=== PATIENT | female | born 1955 | race Caucasian/White ===

== ENCOUNTER 2022-04-11 08:02 | Emergency (ER) | payer MEDICARE, MEDICAID ==
[~2022-04-11] VITALS: Ht 160 cm; Wt 59.0 kg
[~2022-04-11 08:02] MED LIST: ALBU8HFA IH; ALEN70TA80 PO; ATOR20TA65 PO; BENZ2TAB76 PO; CHOL10002 PO; FLUT220HFA IH; LEVO112T4 PO; METF500T PO; OMEP20 PO; OS500 PO; PARO30TA60 PO; TOPI100T37 PO; ZIPR80CA2 PO
[2022-04-11] MEDS ORDERED: KETOROLAC TROMETHAMINE 30 MG/ML VIAL IM ONE (09:45)
[2022-04-11 10:37] VITALS: BP 132/83
[2022-04-11] MEDS ORDERED: IBUP-2070 PO (10:56)
== END 2022-04-11 11:10 | disposition home or self-care (01) ==
LOC: EMS 08:03
DX: S40.012A Contusion of left shoulder, initial encounter (principal); E11.9 Type 2 diabetes mellitus without complications; F31.9 Bipolar disorder, unspecified; F41.9 Anxiety disorder, unspecified; F03.90 Unspecified dementia, unspecified severity, without behavioral disturbance, psychotic disturbance, mood disturbance, and anxiety; K21.9 Gastro-esophageal reflux disease without esophagitis; M19.90 Unspecified osteoarthritis, unspecified site; V09.9XXA Pedestrian injured in unspecified transport accident, initial encounter; Y93.89 Activity, other specified; Y92.512 Supermarket, store or market as the place of occurrence of the external cause; Y99.8 Other external cause status; Z90.49 Acquired absence of other specified parts of digestive tract; Z88.1 Allergy status to other antibiotic agents; Z88.0 Allergy status to penicillin
CPT/HCPCS: 99283; 82962; 73030; 96372; J1885

== ENCOUNTER 2022-09-01 13:24 | Emergency (ER) | payer MEDICARE, MEDICAID ==
[~2022-09-01] VITALS: Ht 160 cm; Wt 62.7 kg
[~2022-09-01 13:24] MED LIST changes: -ATOR20TA65 PO; -CHOL10002 PO; +IBUP-1492 PO
[2022-09-01] MEDS ORDERED: DOXE50CA70 PO (13:47)
[2022-09-01] MEDS ORDERED: GLUC1TAB61 PO (13:47)
[2022-09-01] MEDS ORDERED: LINA72CA PO (13:47)
[2022-09-01] MEDS ORDERED: CALC-1009 PO (13:47)
[2022-09-01] MEDS ORDERED: LORazepam 2 MG/ML VIAL IVP ONE (15:15)
[2022-09-01] MEDS ORDERED: CLINDAMYCIN HCL 150 MG CAPSULE PO ONE (15:15)
[2022-09-01] MEDS ORDERED: IBUPROFEN 600 MG TABLET PO ONE (15:15)
[2022-09-01] MEDS ORDERED: DiphenhydrAMINE HCL 50 MG/ML VIAL IVP ONE (15:15)
[2022-09-01] MEDS ORDERED: CLIN300C58 PO (17:23)
[2022-09-01 17:44] VITALS: BP 125/72
== END 2022-09-01 17:46 | disposition home or self-care (01) ==
LOC: EMS 13:26
DX: R68.84 Jaw pain (principal); M19.011 Primary osteoarthritis, right shoulder; F41.9 Anxiety disorder, unspecified; F31.9 Bipolar disorder, unspecified; E11.9 Type 2 diabetes mellitus without complications; F03.90 Unspecified dementia, unspecified severity, without behavioral disturbance, psychotic disturbance, mood disturbance, and anxiety; Z87.891 Personal history of nicotine dependence; Z90.49 Acquired absence of other specified parts of digestive tract; Z98.890 Other specified postprocedural states; Z88.8 Allergy status to other drugs, medicaments and biological substances
CPT/HCPCS: 82962; 99283

== ENCOUNTER 2023-02-27 17:03 | Inpatient (IN) | payer MEDICARE, MEDICAID ==
[~2023-02-27] VITALS: Ht 152.4 cm; Wt 71.1 kg
[~2023-02-27 17:03] MED LIST changes: +ALBU18HF12 IH; -ALBU8HFA IH; +BENZ2TAB71 PO; -BENZ2TAB76 PO; +CALC-1009 PO; +CLIN300C58 PO; +DOXE50CA70 PO; +FLUT12AE18 IH; -FLUT220HFA IH; +GLUC1TAB61 PO; +LINA72CA PO; -PARO30TA60 PO
[2023-02-27] MEDS ORDERED: LINA72CA PO (18:34)
[2023-02-27] MEDS ORDERED: LEVO125T95 PO (18:34)
[2023-02-27] MEDS ORDERED: MAGNESIUM PO (18:34)
[2023-02-27] MEDS ORDERED: FERR220E10 PO (18:34)
[2023-02-27] MEDS ORDERED: MULT-1203 PO (18:34)
[2023-02-27] MEDS ORDERED: BACL10TA PO (18:34)
[2023-02-27] MEDS ORDERED: ALEN70TA80 PO (18:34)
[2023-02-27] MEDS ORDERED: ATOR20TA65 PO (18:34)
[2023-02-27] MEDS ORDERED: BENZ1TAB84 PO (18:34)
[2023-02-27] MEDS ORDERED: GLUCOSAMINE PO (18:34)
[2023-02-27] MEDS ORDERED: MEMA5 PO (18:34)
[2023-02-27] MEDS ORDERED: TOPI200T PO (18:34)
[2023-02-27] MEDS ORDERED: FERR-82 PO (18:34)
[2023-02-27] MEDS ORDERED: ALBU18HF12 IH (18:34)
[2023-02-27] MEDS ORDERED: METF-1211 PO (18:34)
[2023-02-27] MEDS ORDERED: GABA-1181 PO (18:34)
[2023-02-27] MEDS ORDERED: ZIPR60CA29 PO (18:34)
[2023-02-27] MEDS ORDERED: SODIUM CHLORIDE 0.9% 1,000 ML IV ONE (22:30)
[2023-02-27] MEDS ORDERED: ONDANSETRON HCL 4 MG/2 ML VIAL IVP ONE (22:30)
[2023-02-27 22:51] LABS: BASOPHILS % (AUTO) 1.4 % (0.0-2.0); EOSINOPHILS % (AUTO) 0.4 % (1.0-6.0); HEMATOCRIT 40.4 % (36-46); HEMOGLOBIN 12.6 g/dL (12.0-16.0); LYMPHOCYTES % (AUTO) 27.8 % (22.0-44.0); MEAN CORPUSCULAR HEMOGLOBIN 24.7 pg (26.0-34.0); MEAN CORPUSCULAR HGB CONC 31.2 G/dL (31.0-37.0); MEAN CORPUSCULAR VOLUME 79 fL (80-100); MONOCYTES # (AUTO) 0.5 K/uL (0.1-1.0); NEUTROPHILS # (AUTO) 6.9 K/uL (1.8-7.7); NEUTROPHILS % (AUTO) 65.4 % (40.0-70.0); PLATELET COUNT (AUTO) 466 K/uL (150-450); RED CELL DISTRIBUTION WIDTH 16.6 % (11.5-14.5)
[2023-02-27 23:02] LABS: ANION GAP 14 mmol/L (8-16); CALCIUM, TOTAL 9.4 mg/dL (8.8-10.5); CARBON DIOXIDE 24 mmol/L (22-29); CHLORIDE 104 mmol/L (98-107); CREATININE 0.75 mg/dL (0.60-1.30); GLOMERULAR FILTR. RATE CALC > 60 mL/min (>60); GLUCOSE,RANDOM 124 mg/dL (70-110); POTASSIUM 3.6 mmol/L (3.5-5.1); SODIUM SERUM 142 mmol/L (136-145)
[2023-02-27 23:08] LABS: ALANINE AMINOTRANSFERASE 18 U/L (12-78); ALBUMIN 3.3 g/dL (3.4-5.0); ALKALINE PHOSPHATASE 112 U/L (46-116); ASPARTATE AMINOTRANSFERASE 13 U/L (15-37); BILIRUBIN,TOTAL 0.2 mg/dL (0.1-1.0); CREATINE KINASE, TOTAL ONLY 45 U/L (26-192); LIPASE 37 U/L (73-393); TOTAL PROTEIN, SERUM 7.6 g/dL (6.4-8.2)
[2023-02-27 23:17] LABS: B-TYPE NATRIURETIC PEPTIDE 264 pg/mL (0-100)
[2023-02-27] MEDS ORDERED: PANTOPRAZOLE SODIUM 40 MG/VIAL IVP ONE (23:30)
[2023-02-28] MEDS ORDERED: ONDANSETRON HCL 4 MG/2 ML VIAL IVP PRN ×2 (00:15→00:30)
[2023-02-28] MEDS ORDERED: 0.9% SODIUM CHLORIDE 10 ML SYRINGE IVP PRN ×2 (00:15→00:30)
[2023-02-28] MEDS ORDERED: ACETAMINOPHEN 325 MG TABLET PO PRN ×2 (00:15→00:30)
[2023-02-28 01:37] VITALS: BP 126/78; PULSE 80; RESP 20; TEMP 98.1
[2023-02-28 04:37] VITALS: BP 121/66; PULSE 83; RESP 18; TEMP 97.8
[2023-02-28 04:45] LABS: APPEARANCE,URINE TURBID (CLEAR); BILIRUBIN,URINE NEGATIVE (NEGATIVE); GLUCOSE, URINE (UA) NEGATIVE (NEGATIVE); KETONES,URINE 40-60 mg/dL (NEGATIVE); LEUKOCYTE ESTERASE ,URINE NEGATIVE (NEGATIVE); NITRATE,URINE NEGATIVE (NEGATIVE); OCCULT BLOOD,URINE NEGATIVE (NEGATIVE); PROTEIN,URINE 30-70 mg/dL (NEGATIVE); SPECIFIC GRAVITIY, URINE 1.015 (1.003-1.030); UROBILINOGEN,URINE <=1.0 mg/dL (<=1.0)
[2023-02-28] MEDS ORDERED: DEXTROSE 50%-WATER 25 GM/50 ML SYRINGE IVP PRN ×2 (07:45)
[2023-02-28] MEDS ORDERED: INSULIN LISPRO 100 UNITS/ML SQ PRN ×2 (07:45)
[2023-02-28] MEDS ORDERED: SODIUM CHLORIDE 0.9% 1,000 ML IV ONE (07:45)
[2023-02-28 08:00] VITALS: BP 121/75; PULSE 80; RESP 20; TEMP 98
[2023-02-28 08:23] LABS: THYROID STIMULATING HORMONE 0.84 uIU/mL (0.36-3.74)
[2023-02-28] MEDS: DOCUSATE SODIUM 100 MG CAPSULE PO SCH ×2 (09:28→20:42)
[2023-02-28] MEDS: HEPARIN SODIUM,PORCINE 5,000 UNITS/ML VIAL SQ SCH ×3 (09:32→23:35)
[2023-02-28] MEDS: PANTOPRAZOLE SODIUM 40 MG/VIAL IVP SCH (09:33)
[2023-02-28] MEDS ORDERED: METOCLOPRAMIDE HCL 5 MG TABLET PO PRN (10:30)
[2023-02-28] MEDS: ZIPRASIDONE HCL 80 MG CAPSULE PO SCH ×2 (13:14→18:14)
[2023-02-28] MEDS: ACETAMINOPHEN 325 MG TABLET PO PRN ×2 (15:00→20:42)
[2023-02-28] MEDS: ONDANSETRON HCL 4 MG/2 ML VIAL IVP PRN (15:07)
[2023-02-28 15:56] VITALS: BP 115/68; PULSE 73; RESP 20; TEMP 98.1
[2023-02-28] MEDS: DOXEPIN HCL 50 MG CAPSULE PO SCH (16:15)
[2023-02-28 20:01] VITALS: BP 115/70; PULSE 73; RESP 18; TEMP 97.6
[2023-02-28] MEDS ORDERED: MAGN500T4 PO (20:12)
[2023-02-28] MEDS ORDERED: GLUC500 PO (20:12)
[2023-02-28] MEDS ORDERED: OMEP20CA13 PO (20:12)
[2023-02-28] MEDS ORDERED: PARO30TA60 PO (20:12)
[2023-02-28] MEDS ORDERED: ZIPR80CA9 PO (20:12)
[2023-02-28] MEDS ORDERED: LEVO112T7 PO (20:12)
[2023-03-01 00:29] LABS: GLUCOMETER DEV NAME(LOC) 6S.2
[2023-03-01 00:41] LABS: GLUCOMETER DEV NAME(LOC) 6N.2B
[2023-03-01 04:09] VITALS: BP 123/85; PULSE 73; RESP 18; TEMP 97.6
[2023-03-01] MEDS: ACETAMINOPHEN 325 MG TABLET PO PRN (04:13)
[2023-03-01] MEDS: ONDANSETRON HCL 4 MG/2 ML VIAL IVP PRN (05:39)
[2023-03-01 05:47] LABS: GLUCOMETER DEV NAME(LOC) 6N.1
[2023-03-01 06:51] LABS: BASOPHILS % (AUTO) 0.8 % (0.0-2.0); EOSINOPHILS % (AUTO) 1.9 % (1.0-6.0); HEMATOCRIT 36.6 % (36-46); HEMOGLOBIN 11.6 g/dL (12.0-16.0); LYMPHOCYTES # (AUTO) 2.8 K/uL (1.0-4.8); LYMPHOCYTES % (AUTO) 44.1 % (22.0-44.0); MEAN CORPUSCULAR HEMOGLOBIN 24.9 pg (26.0-34.0); MEAN CORPUSCULAR HGB CONC 31.6 G/dL (31.0-37.0); MEAN CORPUSCULAR VOLUME 79 fL (80-100); MONOCYTES # (AUTO) 0.6 K/uL (0.1-1.0); MONOCYTES % (AUTO) 9.2 % (2.0-9.0); NEUTROPHILS # (AUTO) 2.8 K/uL (1.8-7.7); PLATELET COUNT (AUTO) 369 K/uL (150-450); RED BLOOD CELL COUNT(AUTO) 4.66 MIL/uL (4.00-5.20)
[2023-03-01 07:08] LABS: ALANINE AMINOTRANSFERASE 16 U/L (12-78); ALBUMIN 2.7 g/dL (3.4-5.0); ALKALINE PHOSPHATASE 90 U/L (46-116); ANION GAP 13 mmol/L (8-16); ASPARTATE AMINOTRANSFERASE 16 U/L (15-37); BILIRUBIN,TOTAL 0.2 mg/dL (0.1-1.0); CALCIUM, TOTAL 8.8 mg/dL (8.8-10.5); CARBON DIOXIDE 23 mmol/L (22-29); CHLORIDE 108 mmol/L (98-107); CREATININE 0.67 mg/dL (0.60-1.30); GLOMERULAR FILTR. RATE CALC > 60 mL/min (>60); GLUCOSE,RANDOM 100 mg/dL (70-110); POTASSIUM 3.5 mmol/L (3.5-5.1); SODIUM SERUM 144 mmol/L (136-145); TOTAL PROTEIN, SERUM 6.3 g/dL (6.4-8.2)
[2023-03-01] MEDS: DOCUSATE SODIUM 100 MG CAPSULE PO SCH (07:56)
[2023-03-01] MEDS: HEPARIN SODIUM,PORCINE 5,000 UNITS/ML VIAL SQ SCH (07:56)
[2023-03-01] MEDS: ZIPRASIDONE HCL 80 MG CAPSULE PO SCH (07:56)
[2023-03-01] MEDS: PANTOPRAZOLE SODIUM 40 MG/VIAL IVP SCH (07:56)
[2023-03-01] MEDS: DOXEPIN HCL 50 MG CAPSULE PO SCH (07:56)
[2023-03-01 09:08] LABS: APPEARANCE,URINE CLEAR (CLEAR); BILIRUBIN,URINE NEGATIVE (NEGATIVE); GLUCOSE, URINE (UA) NEGATIVE (NEGATIVE); KETONES,URINE TRACE mg/dL (NEGATIVE); LEUKOCYTE ESTERASE ,URINE TRACE (NEGATIVE); NITRATE,URINE NEGATIVE (NEGATIVE); OCCULT BLOOD,URINE NEGATIVE (NEGATIVE); PROTEIN,URINE NEGATIVE (NEGATIVE); SPECIFIC GRAVITIY, URINE 1.009 (1.003-1.030); UROBILINOGEN,URINE <=1.0 mg/dL (<=1.0)
[2023-03-01 09:33] LABS: BACTERIA,URINE None Seen /HPF (None Seen); RBC,URINE None Seen /HPF (0-2); WBC,URINE 0-2 /HPF (0-5)
[2023-03-01] MEDS ORDERED: ESOM20CA31 PO (10:55)
[2023-03-01 11:32] LABS: GLUCOMETER DEV NAME(LOC) 6S.2
[2023-03-01 15:20] VITALS: BP 141/90; PULSE 84; RESP 18; TEMP 98.5
[2023-03-01 15:26] VITALS: BP 156/63; PULSE 73; RESP 18; TEMP 99.2
[2023-03-02 07:57] LABS: GLUCOMETER DEV NAME(LOC) 6N.2B
== END 2023-03-01 15:40 | disposition home or self-care (01) | DRG 392 ==
LOC: EMS 17:04 → 6S 02-28 00:32
PROVIDERS: ADMIT Internal Medicine; ATTEND Internal Medicine
DX: K44.9 Diaphragmatic hernia without obstruction or gangrene (principal); F03.94 Unspecified dementia, unspecified severity, with anxiety; E11.9 Type 2 diabetes mellitus without complications; K21.9 Gastro-esophageal reflux disease without esophagitis; R29.6 Repeated falls; F12.90 Cannabis use, unspecified, uncomplicated; F20.9 Schizophrenia, unspecified; R63.4 Abnormal weight loss; F31.9 Bipolar disorder, unspecified; F41.9 Anxiety disorder, unspecified; E03.9 Hypothyroidism, unspecified; Z90.49 Acquired absence of other specified parts of digestive tract; Z88.0 Allergy status to penicillin; Z88.8 Allergy status to other drugs, medicaments and biological substances; Z88.1 Allergy status to other antibiotic agents; Z68.30 Body mass index [BMI] 30.0-30.9, adult; Z79.899 Other long term (current) drug therapy
CPT/HCPCS: 71045; 74176; 80053; 81001; 81003; 82550; 82962; 83690; 83880; 84443; 84484; 85025; 93005; 99285; C9113; J1644; J2405; J7030; 36415-L1; 36415-TC